=== PATIENT | male | born 1955 | race African-American/Black ===

== ENCOUNTER 2018-06-07 12:47 | Outpatient (CLI) | payer BC, OTHER ==
--- NOTE | 2018-06-07 14:34 | RAD ---
LUMBAR SPINE TWO VIEWS: History: Right sided sciatica pain x 2 months. Comparison: None. FINDINGS: Five lumbar type vertebral bodies. Vertebral body height is maintained. Disc space heights are preser yary. No spondylolisthesis or spondylosis. IMPRESSION: Unremarkable two views lumbar spine. POS: [id number]
== END 2018-06-07 12:48 | disposition home or self-care (01) ==
LOC: SCSRAD 12:47
PROVIDERS: ATTEND Nurse Practitioner Family
DX: M54.31 Sciatica, right side (principal)
CPT/HCPCS: 72100